=== PATIENT | female | born 1990 | race Caucasian/White ===

== ENCOUNTER 2017-03-26 13:18 | Emergency (ER) | payer SELFPAY ==
[2017-03-26 13:33] VITALS: BP 134/84
--- NOTE | 2017-03-26 14:03 | RAD ---
HISTORY: Right facial trauma, pain, paresthesia COMPARISONS: None TECHNIQUE: Multiple contiguous axial CT scans were obtained of the face without intravenous contrast, with coronal and sagittal multiplanar reformations. FINDINGS: BONES: There is no displaced fracture or dislocation. The orbital rim is intact. The zygomatic arch is intact. The pterygoid plates are intact. ORBITS: The globes are round. The optic nerves are symmetric. The extraocular musculature is normal. There is no post septal or intraconal inflammatory change. There is no retrobulbar hematoma. PARANASAL SINUSES: The paranasal sinuses are clear. BRAIN AND SOFT TISSUE: Unremarkable. OTHER: None. IMPRESSION: NO FACIAL FRACTURE
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
== END 2017-03-26 14:20 | disposition home or self-care (01) ==
LOC: UCCORT 13:18
DX: S06.0X0A Concussion without loss of consciousness, initial encounter (principal); R51 Headache; W22.09XA Striking against other stationary object, initial encounter; Y92.9 Unspecified place or not applicable
CPT/HCPCS: 70486; 99201; G0463